=== PATIENT | female | born 1995 | race Caucasian/White ===

== ENCOUNTER 2017-05-13 11:06 | Emergency (ER) | payer BC ==
[~2017-05-13] VITALS: Ht 172.7 cm; Wt 61.7 kg
[2017-05-13] MEDS ORDERED: DEXTROAMP-AMPHE20 MG PO (11:21)
[2017-05-13] MEDS ORDERED: LEVOTHYROXINE88 MCG PO (11:21)
[2017-05-13] MEDS ORDERED: SERTRALINE HCL100 MG PO (11:21)
[2017-05-13] MEDS ORDERED: ADDERALL10 MG PO (11:21)
[2017-05-13 12:58] LABS: HEMATOCRIT 39.5 % (36.0-46.0); MCH 28.2 PG (29.0-34.0); MCHC 33.9 G/DL (30.0-36.0); MCV 83.2 FL (83-99); MEAN PLAT.VOLUME 9.5 uM^3 (9.5-12.4); PLATELET COUNT 275 K/uL (156-360); RBC DIS.WIDTH-CV 12.6 % (11.8-14.6); RBC DIS.WIDTH-SD 38.3 % (39-53); RED BLOOD COUNT 4.75 M/uL (3.80-5.20); WHITE BLOOD COUNT 7.5 K/uL (4.1-10.2)
[2017-05-13 13:20] LABS: CHLORIDE 110 mEq/L (99-109); SODIUM 140 mEq/L (136-147)
[2017-05-13 13:21] LABS: GLUCOSE 91 mg/dL (70-99)
[2017-05-13 13:23] LABS: ANION GAP 7 MEQ/L (2-14)
[2017-05-13 13:25] LABS: GFR ESTIMATE (CALCULATED) > 59 mL/min/
[2017-05-13 13:26] LABS: UREA NITROGEN (BUN) 11 mg/dL (9-23)
[2017-05-13 13:36] LABS: QUANTITATIVE HCG < 4.0 MIU/ML
[2017-05-13 14:18] VITALS: BP 116/62
== END 2017-05-13 14:42 | disposition home or self-care (01) ==
LOC: EME 11:06
PROVIDERS: Emergency Medicine
DX: E86.0 Dehydration (principal); R55 Syncope and collapse
CPT/HCPCS: 80048; 84702; 85027; 93005; 99281; 99285; J7030